=== PATIENT | female | born 1985 | race Two or more races ===

== ENCOUNTER 2021-07-31 10:38 | Emergency (ER) | payer OTHER ==
[2021-07-31 11:03] VITALS: BP 110/73; PULSE 88; TEMP 98.4; BMI 22.4
[2021-07-31] MEDS ORDERED: SODIUM CHLORIDE 0.9% 500 ML INFUS.BAG IV ONE (12:05)
[2021-07-31 13:44] LABS: BASO % 0.1 % (0-2.0); EOS % 0.3 % (0-4.5); HEMATOCRIT 39.5 % (32.4-45.2); LYMPH % 12.8 % (8-40); MCH 30.8 pg (25.7-33.7); MCHC 32.9 g/dl (32.0-36.0); MEAN CELL VOLUME 93.4 fl (80-96); MEAN PLT VOLUME 10.5 fl (7.5-11.1); MONO % 8.2 % (3.8-10.2); NEUT % 78.6 % (42.8-82.8); PLATELET COUNT 110 10^3/uL (134-434); RBC 4.23 M/mm3 (3.60-5.2); RDW 12.8 % (11.6-15.6); WHITE BLOOD COUNT 5.6 K/mm3 (4.0-10.0)
[2021-07-31 13:59] LABS: BLOOD UREA NITROGEN 14.6 mg/dL (7-18); CALCIUM 9.3 mg/dL (8.5-10.1)
[2021-07-31 14:00] LABS: ALBUMIN 4.1 g/dl (3.4-5.0)
[2021-07-31 14:03] LABS: CREATININE 0.9 mg/dL (0.55-1.3)
[2021-07-31 14:04] LABS: BILIRUBIN,TOTAL 0.3 mg/dL (0.2-1); TOT PROT 7.8 g/dl (6.4-8.2)
== END 2021-07-31 15:23 | disposition home or self-care (01) ==
LOC: JER 10:38
DX: F41.9 Anxiety disorder, unspecified (principal)
CPT/HCPCS: 36415; 71046-TC-FY; 80053; 84484; 84703; 85025; 93005; 93010; 99285-25

== ENCOUNTER 2023-08-05 14:17 | Emergency (ER) | payer OTHER ==
[2023-08-05 15:42] VITALS: BP 128/97; PULSE 83; RESP 18; TEMP 98.2; BMI 24.0
[2023-08-05] MEDS: LACTATED RINGERS SOLUTION 1000 ML INFUS.BAG IV ONE (16:33)
[2023-08-05 16:41] LABS: BASO % 0.2 % (0-2.0); EOS % 0.3 % (0-4.5); HEMATOCRIT 39.4 % (32.4-45.2); HEMOGLOBIN 13.3 GM/dL (10.7-15.3); LYMPH % 16.6 % (8-40); MCH 31.3 pg (25.7-33.7); MCHC 33.6 g/dl (32.0-36.0); MEAN PLT VOLUME 10.4 fl (7.5-11.1); MONO % 7.2 % (3.8-10.2); NEUT % 75.7 % (42.8-82.8); PLATELET COUNT 125 10^3/uL (134-434); RBC 4.24 M/mm3 (3.60-5.2); RDW 12.4 % (11.6-15.6); WHITE BLOOD COUNT 4.5 K/mm3 (4.0-10.0)
[2023-08-05 17:02] LABS: POTASSIUM 4.4 mmol/L (3.5-5.1)
[2023-08-05 17:03] LABS: CALCIUM 9.1 mg/dL (8.5-10.1)
[2023-08-05 17:04] LABS: BLOOD UREA NITROGEN 9.2 mg/dL (7-18); MAGNESIUM 2.1 mg/dL (1.8-2.4)
[2023-08-05 17:07] LABS: CREATININE 0.7 mg/dL (0.55-1.3)
[2023-08-05 17:08] LABS: BILIRUBIN,TOTAL 0.2 mg/dL (0.2-1); TOT PROT 7.8 g/dl (6.4-8.2)
== END 2023-08-05 17:41 | disposition home or self-care (01) ==
LOC: JER 14:17
DX: R42 Dizziness and giddiness (principal); R53.1 Weakness; R55 Syncope and collapse
CPT/HCPCS: 36415; 80053; 83735; 84484; 85025; 93005; 93010; 99284-25

== ENCOUNTER 2024-04-06 13:23 | Emergency (ER) | payer OTHER ==
[2024-04-06 13:36] VITALS: BP 131/98; PULSE 71; RESP 18; TEMP 98.6; BMI 23.6
== END 2024-04-06 15:20 | disposition home or self-care (01) ==
LOC: JER 13:23
DX: F41.9 Anxiety disorder, unspecified (principal); R06.02 Shortness of breath; R20.0 Anesthesia of skin; R20.2 Paresthesia of skin
CPT/HCPCS: 93005; 93010; 99283-25

== ENCOUNTER 2024-06-27 15:44 | Emergency (ER) | payer OTHER ==
[2024-06-27 15:57] VITALS: RESP 16; TEMP 98.4; BMI 24.5
[2024-06-27] MEDS: SODIUM CHLORIDE 1,000 ML IV STA (17:21)
[2024-06-27 17:24] LABS: ABSOLUTE IMMATURE GRANULOCYTES 0.01 x10^3/uL (0.0-0.031); BASOPHILS # 0.01 x10^3/uL (0.01-0.08); EOSINOPHIL % 0.5 % (0.7-5.8); EOSINOPHILS # 0.02 x10^3/uL (0.04-0.36); HEMATOCRIT 42.3 % (34.1-44.9); HEMOGLOBIN 13.9 g/dL (11.2-15.7); MCHC 32.9 g/dl (32.2-35.5); MEAN CELL VOLUME 94.4 fl (79.4-94.8); MEAN PLT VOLUME 12.4 fl (9.4-12.3); MONOCYTE # 0.46 x10^3/uL (0.24-0.86); MONOCYTE % 10.4 % (4.7-12.5); PLATELET COUNT 123 x10^3/uL (182-369); RDW 11.9 % (12.1-16.8)
[2024-06-27 17:53] LABS: POTASSIUM 5.1 mmol/L (3.5-5.1)
[2024-06-27 17:54] LABS: CALCIUM 9.7 mg/dL (8.5-10.1)
[2024-06-27 17:55] LABS: ALBUMIN 4.1 g/dl (3.4-5.0); BLOOD UREA NITROGEN 8.8 mg/dL (7-18); MAGNESIUM 2.3 mg/dL (1.8-2.4)
[2024-06-27 17:57] LABS: INR 1.05 (0.83-1.09); PROTHROMBIN TIME (PATIENT) 11.4 SEC (9.7-13.0)
[2024-06-27 17:58] LABS: CREATININE 0.8 mg/dL (0.55-1.3)
[2024-06-27 18:00] LABS: BILIRUBIN,TOTAL 0.5 mg/dL (0.2-1)
[2024-06-27] MEDS ORDERED: ACETAMINOPHEN INJECTION 100 ML ONE (18:30)
[2024-06-27] MEDS ORDERED: ONDANSETRON 4 MG/2 ML VIAL ONE (18:30)
[2024-06-27] MEDS: ACETAMINOPHEN 1000 MG/100 ML BAG IVPB ONE (18:39)
[2024-06-27] MEDS: ONDANSETRON 4 MG/2 ML VIAL IVPUSH ONE (18:41)
[2024-06-27] MEDS ORDERED: CYANOCOBALAMIN (VITAMIN B-12) 1000 MCG/1 ML VIAL ONE (20:24)
[2024-06-27] MEDS: CYANOCOBALAMIN (VITAMIN B-12) 1000 MCG/1 ML VIAL IM ONE (20:28)
[2024-06-27 20:41] VITALS: BP 139/86; PULSE 67
== END 2024-06-27 20:42 | disposition home or self-care (01) ==
LOC: JER 15:44
PROC: 3E033NZ Introduction of Analgesics, Hypnotics, Sedatives into Peripheral Vein, Percutaneous Approach (ICD-10-PCS; principal; 2024-06-27)
PROC: 3E033GC Introduction of Other Therapeutic Substance into Peripheral Vein, Percutaneous Approach (ICD-10-PCS; 2024-06-27)
PROC: 3E023GC Introduction of Other Therapeutic Substance into Muscle, Percutaneous Approach (ICD-10-PCS; 2024-06-27)
PROC: 3E0337Z Introduction of Electrolytic and Water Balance Substance into Peripheral Vein, Percutaneous Approach (ICD-10-PCS; 2024-06-27)
DX: R07.89 Other chest pain (principal); F41.9 Anxiety disorder, unspecified; R00.2 Palpitations; M79.622 Pain in left upper arm; R20.0 Anesthesia of skin; R51.9 Headache, unspecified; R11.2 Nausea with vomiting, unspecified; N95.9 Unspecified menopausal and perimenopausal disorder; Q07.00 Arnold-Chiari syndrome without spina bifida or hydrocephalus; E56.9 Vitamin deficiency, unspecified
CPT/HCPCS: 0241U-QW; 36415; 71046-TC-FY; 80053; 83735; 84484; 84703; 85025; 85610; 85730; 86850; 86900; 86901; 93005; 93010; 99285-25; J0131